=== PATIENT | female | born 1965 | race Caucasian/White ===

== ENCOUNTER 2016-08-30 15:28 | Emergency (ER) | payer OTHER ==
[2016-08-30 15:35] VITALS: BP 140/63; BMI 39.5
--- NOTE | 2016-08-30 15:44 | DR.GENAD ---
HPI - PCP Primary Care Physician: ALBERT - Complaint/Symptoms Chief Complaint Doctors Comments: Patient states that she fell today now with ankle/foot pain. Severe, sharp,aggravated by motion, Chief Complaint:: LEFT ANKLE AND RIGHT HIP PAIN S/P FALL. - Source History Provided: Patient - Mode of Arrival Mode of Arrival: EMS - Timing Onset of Chief Complaint: 08/30/16 PMH - PMH Past Medical History: Yes Past Medical History: Diabetes, Hypertension Past Surgical History: Yes Surgical History: Cholecystectomy, Hysterectomy, Other - Family History History of Family Medical Conditions: Yes Family Medical History: Diabetes Mellitus, Cancer, [place], Heart Failure, Hypertension - Social History Does patient currently use any type of tobacco product: No Have you used tobacco products in the last 12 months: No Type of Tobacco Use: None Does any household member use tobacco: No Alcohol Use: None Do you use any recreational Drugs:: No Lives With: Family Lives Where: Home - infectious screening In the last 2 months have you had wt loss of >10#?: NO Have you had fever, night sweats or hemotysis?: No Have you traveled outside the country in the last 6 months?: No Isolation: Standard ROS - Review of Systems Eyes: No Symptoms Reported ENTM: No Symptoms Reported Respiratoy: No Symptoms Reported Cardiovascular: No Symptoms Reported Gastrointestinal/Abdominal: No Symptoms Reported Genitourinary: No Symptoms Reported Neurological: Problems Walking (injured ankle) Musculoskeletal: Joint Pain, Ankle (fell injured lefft ankle) Integumentary: No Symptoms Reported Hematologic/Lymphatic: No Symptoms Reported Endocrine: No Symptoms Reported Psychiatric: No Symptoms Reported All Other Systems: Reviewed and Negative PE - Vital Signs Vitals: Temperature 97 F Pulse Rate 92 Respiratory Rate 16 Blood Pressure [Right Arm] 129/60 Blood Pressure [Left Arm] 143/67 Blood Pressure 140/63 O2 Sat by Pulse Oximetry 98 - General Limitations: No Limitations General Appearance: Alert, In No Apparent Distress - Head Head Exam: Normal Inspection, Atraumatic - Eyes Eye exam: Normal Appearance, PERRL, EOMI - ENT ENT Exam: Normal Exam External Ear Exam: Normal External Inspection TM/Canal Exam: Bilateral Normal Nose Exam: Normal Nose Exam Mouth Exam: Normal Inspection Throat Exam: Normal Inspection - Neck Neck Exam: Normal Inspection - Chest Chest Inspection: Normal Inspection - Respiratory Respiratory Exam: Normal Lung Sounds Bilat Respiratory Exam: Bilateral Clear to Auscultation - Cardiovascular Cardiovascular Exam: Regular Rate - Abdominal Exam Abdominal Exam: Normal Inspection Abdominal Tenderness: negative: RUQ, RLQ, LUQ, LLQ, Epigastrium, Suprapubic, Diffuse, Mild, Moderate, Severe, Other - Extremities Extremities Exam: Other (left ankle tenderness with ecchymosis navicular) - Back Back Exam: Normal Inspection - Neurologic Neurological Exam: Alert, Oriented X3, CN II-XII Intact - Psychiatric Psychiatric Exam: Normal Affect - Skin Skin Exam: Warm, Dry ROR - XRAY XRAY Interpreted by: Radiologist (Mildly displaced and slightly comminuted lateral malleolar fracture with soft tissue swelling laterally) - Diagnosis Discharge Problem: Lateral malleolar fracture Qualifiers: Encounter type: initial encounter Fracture type: closed Laterality: left - Discharge Plan Condition: Stable - Follow ups/Referrals Follow ups/Referrals: SKYLER ALBERT [Primary Care Provider] - 3 days - Instructions
[2016-08-30] MEDS ORDERED: DEMEROL INJ IM ONE (15:45)
[2016-08-30] MEDS ORDERED: DEMEROL INJ ONE (15:47)
--- NOTE | 2016-08-30 16:38 | RAD ---
HISTORY: Pain Study: right hip series Comparison: None Findings: There is overlying trauma board artifact throughout the exam which is limiting the study. There is m ild to moderate joint space narrowing symmetrically in both hips. No obvious displaced fracture can be seen. The bones are osteopenic. The visualized pelvis is intact. Impression: Severely limited study due to the overlying trauma board artifact. Moderate joint space narrowing in both hips and diffuse osteopenia with no obvious fracture seen. Re commend followup films. Reported By:
--- NOTE | 2016-08-30 16:41 | RAD ---
HISTORY: Pain Study: Left ankle series Comparison: None Findings: There is a mildly displaced and slightly comminuted fracture along lateral malleolus with mild poste rior displacement of the distal fragments. The tibiotalar joint appears intact. The bones are osteop enic. There is moderate soft tissue swelling anterolaterally. IMPRESSION: Mildly displaced and slightly comminuted lateral malleolar fracture with soft tissue swelling latera lly Reported By:
== END 2016-08-30 17:11 | disposition home or self-care (01) ==
LOC: ER 15:28
PROC: 2W3MX1Z Immobilization of Left Lower Extremity using Splint (ICD-10-PCS; principal; 2016-08-30)
DX: S82.62XA Displaced fracture of lateral malleolus of left fibula, initial encounter for closed fracture (principal); M85.80 Other specified disorders of bone density and structure, unspecified site; M25.552 Pain in left hip; W19.XXXA Unspecified fall, initial encounter; Y92.9 Unspecified place or not applicable
CPT/HCPCS: 29515; 73501; 73610; 96372; 99282; J2175

== ENCOUNTER 2016-09-02 08:07 | Emergency (ER) | payer OTHER ==
[2016-09-02] MEDS ORDERED: ADRENALINE CHL INJ IVP ONE ×7 (08:10→08:28)
[2016-09-02] MEDS ORDERED: SODIUM BICARBONATE 8.4% INJ ADULT IVP ONE (08:19)
[2016-09-02 08:48] VITALS: BMI 26.6
--- NOTE | 2016-09-02 09:12 | DR.CA ---
HPI - Time Seen Time seen: 08:15 - HPI Comment HPI Comment: HERE VIA EMS FULL CODE WITH CPR AND ACLS PROTOCOL FOR ASYSTOLE IN PROGRESS. PATIENT SEEN 04:00 AM ALIVE AND SHORTLY AFTER 07:00 AM SHE WAS FOUND BY HER IN BED UNRESPONSIVE NOT BREATHING. EMS WAS CALLED. SHE WAS IN ASYSTOLE AND NOT BREATHING. CPR WAS STARTED. SHE WAS INTUBATED AND GIVEN NORCAN AND EPINEPHRINE IV. GLUCOSE CHECK WAS DONE, NOT LOW. SHE WAS THEN TRANSPORTED TO ED. - Complaint Chief Complaint Doctor Comments: CARDIAC ARREST, RESPIRATORY ARREST Chief Complaint:: patient arrived by ems in full code. ems went out to patient unresponsive, not breathing - Reviewed Nurses Notes Review: Yes - Source History Provided: Family Member, EMS - Mode of arrival Mode of Arrival: EMS - Timing Onset of Chief Complaint: 09/02/16 - Context Onset: Unknown History R/T Cardiac Arrest: Prior Cardiac Disease Prehospital Care: Initial Rhythm: Asystole Prehospital: Treatment: CPR, Intubation, IV, Epinephrine - Associated Signs and Symptoms Associated Signs and Symptoms: Other (NONE KNOWN) PMH - PMH Past Medical History: Yes Past Medical History: Coronary Artery Disease, Diabetes, Hypertension, Renal Disease Past Surgical History: Yes Surgical History: Cholecystectomy, Hysterectomy, Other Past Surgical History Comment: SHUNT TO RIGHT UPPER ARM, ABDELRAHMAN INTACT - Family History History of Family Medical Conditions: Yes Family Medical History: Diabetes Mellitus, Cancer, [place], Heart Failure, Hypertension - Social History Does patient currently use any type of tobacco product: No Have you used tobacco products in the last 12 months: No Type of Tobacco Use: None Does any household member use tobacco: No Alcohol Use: None Do you use any recreational Drugs:: No Lives With: Family Lives Where: Home - infectious screening In the last 2 months have you had wt loss of >10#?: JOCELYNE Have you had fever, night sweats or hemotysis?: JOCELYNE Have you traveled outside the country in the last 6 months?: (JOCELYNE) Isolation: Standard ROS - Review of Systems Constitutional: Other (UNRESPONSIVE) Eyes: Other (UNRESPONSIVE.) Respiratoy: Other (UNRESPONSIVE) Cardiovascular: Other (UNRESPONSINE) Gastrointestinal/Abdominal: Other (UNRESPONSIVE). negative: Vomiting Genitourinary: Other (UNRESPONSIVE) Neurological: Other (UNRESPONSIVE) Musculoskeletal: Ankle (FELL WEDNESDAY PAST AND HAVE LEFT ANKLE FRACTURE.), Other ( UNRESPONSIVE) Integumentary: Wound (RECENT AV SHUNT PLACEMENT WITH ABDELRAHMAN ON RIGHT ELBOW/ARM. ) Endocrine: Other (UNRESPONSIVE. DIABETIC. GLUCOSE PER EMS 240) PE - Vitals Vital Signs: BP BP BP 08/30/16 15:33 140/63 10/26/15 12:00 129/60 10/26/15 07:46 143/67 - General Limitations: Other (UNRESPONSIVE) General Appearance: Other (UNRESPONSIVE. CARDIAC ARREST, INTUBATED) - Head Head Exam: Normal Inspection - Eyes Eye exam: Other (PUPILS DILATED AND FIXED) Eyes: Pupils: Fixed, Dilated - ENT ENT Exam: Normal Exam - Airway Airway: Intubated ET tube placement confirmed by: Exam Gag: Absent - Chest Chest Inspection: Other (NO SPONTANOUS RESPIRATION) Expanded Chest Exam: negative: Crepitus, Laceration, Abrasion, Ecchymosis, Wound , Penetrating Wound, Surgical Incision - Respiratory Ventilation: Assisted Respiratory Exam: Other (NO SPONTANOUS RESPIRATION) - Cardiovascular Cardiovascular Exam: Other (ASYSTOLE). negative: Regular Rate, Normal Rhythm - Abdominal Exam Abdominal Exam: negative: Distention - Extremities Extremities Exam: Other (LEFT ANKLE OCL INTACT. ) - Skin Skin Exam: Other (STABLES NEAR ELBOW ON ARM FOR AV SHUNT.) - Diagnosis Discharge Problem: Cardiopulmonary arrest - Discharge Plan Disposition: 20 Condition: Stable - Follow ups/Referrals Follow ups/Referrals: SKYLER ALBERT [Primary Care Provider] - 3 days - Instructions MDM - Differential Diagnosis Differential Diagnosis: Cardiopulmonary Arrest Course - Treatment Treatment: SEE ORDERS - Consultation Consultation Comments: [facility] PATIENT TURN OVER TO STRAW BOSS WHO IS IN ED TO SEE PATIENT.
== END 2016-09-02 09:35 | disposition expired ==
LOC: ER 08:07
PROC: 5A12012 Performance of Cardiac Output, Single, Manual (ICD-10-PCS; principal; 2016-09-02)
PROC: 0T9B70Z Drainage of Bladder with Drainage Device, Via Natural or Artificial Opening (ICD-10-PCS; principal; 2016-09-02)
DX: I46.9 Cardiac arrest, cause unspecified (principal)
CPT/HCPCS: 84703; 92950; 93041; 96365; 96374; 96375; 99285; 99291; J0170